=== PATIENT | female | born 1980 | race Two or more races ===

== ENCOUNTER 2022-12-01 08:51 | Emergency (ER) | payer MEDICAID, OTHER ==
[~2022-12-01] VITALS: Ht 157.5 cm; Wt 81.8 kg
[2022-12-01 09:12] VITALS: BP 125/72
[2022-12-01] MEDS ORDERED: KETOROLAC TROMETH 60MG/2ML VIAL IM ONE (09:15)
[2022-12-01] MEDS ORDERED: CARBAMIDE PEROXIDE 6.5% OTIC(EAR) SOLN 15ML LEFT EAR ONE (09:15)
[2022-12-01] MEDS ORDERED: IBUP800T26 PO (09:48)
[2022-12-01] MEDS ORDERED: COROSUS LEFT EAR (09:48)
[2022-12-01] MEDS ORDERED: HYDR-4902 PO (09:48)
== END 2022-12-01 09:57 | disposition home or self-care (01) ==
LOC: ER 08:51
DX: H60.92 Unspecified otitis externa, left ear (principal); Z79.899 Other long term (current) drug therapy
CPT/HCPCS: 96372; 99283; J1885